=== PATIENT | female | born 1935 | race Caucasian/White ===

== ENCOUNTER 2017-06-24 19:59 | Emergency (ER) | payer OTHER ==
[~2017-06-24] VITALS: Ht 160 cm; Wt 81.6 kg
[2017-06-24] MEDS ORDERED: SYNTHROID50 MCG (20:14)
[2017-06-24] MEDS ORDERED: NAMENDA10 MG (20:14)
== END 2017-06-24 21:33 | disposition home or self-care (01) ==
LOC: ER 19:59
DX: L89.321 Pressure ulcer of left buttock, stage 1 (principal); L89.311 Pressure ulcer of right buttock, stage 1

== ENCOUNTER 2017-06-30 10:10 | Inpatient (IN) | payer OTHER ==
[~2017-06-30] VITALS: Ht 152.4 cm; Wt 70.3 kg
[~2017-06-30 10:10] MED LIST: NAMENDA10 MG; SYNTHROID50 MCG
[2017-07-10] MEDS ORDERED: SIMVASTATIN40 MG PO (15:56)
[2017-07-10] MEDS ORDERED: OSEL75CA PO (15:56)
[2017-07-10] MEDS ORDERED: DOXYCYCLINE HY100 MG PO (15:56)
[2017-07-10] MEDS ORDERED: NAMENDA10 MG PO (15:56)
[2017-07-10] MEDS ORDERED: VASOTEC10 MG PO (15:56)
== END 2017-07-10 19:06 | disposition home or self-care (01) | DRG 593 ==
LOC: ER 10:10 → MEDJ 20:14 → MEDI 20:14 → MEDJ 07-02 16:23
PROVIDERS: Specialist
PROC: 8E0ZXY6 Isolation (ICD-10-PCS; 2017-07-02)
PROC: 0J990ZX Drainage of Buttock Subcutaneous Tissue and Fascia, Open Approach, Diagnostic (ICD-10-PCS; principal; 2017-07-04 23:45)
PROC: 4A033R1 Measurement of Arterial Saturation, Peripheral, Percutaneous Approach (ICD-10-PCS; 2017-07-10)
DX: L89.322 Pressure ulcer of left buttock, stage 2 (principal); L02.31 Cutaneous abscess of buttock; L89.312 Pressure ulcer of right buttock, stage 2; G30.8 Other Alzheimer's disease; F02.80 Dementia in other diseases classified elsewhere, unspecified severity, without behavioral disturbance, psychotic disturbance, mood disturbance, and anxiety; Z74.01 Bed confinement status; E03.8 Other specified hypothyroidism; B95.62 Methicillin resistant Staphylococcus aureus infection as the cause of diseases classified elsewhere; J09.X2 Influenza due to identified novel influenza A virus with other respiratory manifestations